=== PATIENT | female | born 1960 | race Caucasian/White ===

== ENCOUNTER → 2020-10-19 | Day surgery (SDC) | payer OTHER ==
[~2020-10-19] MED LIST: DUPIXENT P300 MG/2 M SC; OMEPRAZOLE40 MG PO; ZESTRIL5 MG PO
[2020-10-19 10:55] LABS: HCT 35.9 % (37.0-47.0); HGB 12.6 g/dl (12.5-16.0); MCH 34.4 pg (25.0-31.0); MCHC 35.1 g/dL (32.0-36.0); MCV 98.1 fL (78.0-100.0); MPV 9.5 fL (6.0-9.5); RBC 3.66 M/uL (4.20-5.40); RDW 12.4 % (11.5-14.0); WBC 5.4 K/uL (4.0-10.5)
[2020-10-19 11:12] LABS: ALBUMIN 3.9 g/dL (3.4-5.0); BILIRUBIN - TOTAL 0.9 mg/dL (0.2-1.0); BUN/CREAT RATIO (CALC) 14.5 RATIO; CREATININE 0.69 mg/dL (0.51-0.95); GLOBULIN (CALCULATION) 3.1 g/dL; POTASSIUM 4.1 mmol/L (3.5-5.1)
== END | disposition home or self-care (01) ==
LOC: FAS 10:25
PROVIDERS: Surgery
DX: K21.00 Gastro-esophageal reflux disease with esophagitis, without bleeding (principal); K22.10 Ulcer of esophagus without bleeding; K29.70 Gastritis, unspecified, without bleeding; K42.9 Umbilical hernia without obstruction or gangrene; I10 Essential (primary) hypertension; Z20.822 Contact with and (suspected) exposure to COVID-19; Z79.899 Other long term (current) drug therapy; Z98.890 Other specified postprocedural states
CPT/HCPCS: 36415; 80053; J2704; J7120

== ENCOUNTER → 2021-05-09 | Day surgery (SDC) | payer OTHER ==
[~2021-05-09] VITALS: Ht 170.2 cm; Wt 65.8 kg
[~2021-05-09] MED LIST changes: +MVI PO; +ONDANSETRON ODT8 MG PO; +VICODIN 10/3251 EACH PO
[2021-05-09 09:21] LABS: HGB 12.9 g/dl (12.5-16.0); MCH 34.3 pg (25.0-31.0); MCHC 34.9 g/dL (32.0-36.0); MCV 98.4 fL (78.0-100.0); MPV 9.6 fL (6.0-9.5); RBC 3.76 M/uL (4.20-5.40); RDW 11.5 % (11.5-14.0)
[2021-05-09 10:58] LABS: ALBUMIN 3.8 g/dL (3.4-5.0); BILIRUBIN - TOTAL 0.5 mg/dL (0.2-1.0); BUN/CREAT RATIO (CALC) 20.9 RATIO; CREATININE 0.67 mg/dL (0.51-0.95); GLOBULIN (CALCULATION) 3.4 g/dL; POTASSIUM 4.5 mmol/L (3.5-5.1); TOTAL PROTEIN 7.2 g/dL (6.4-8.2)
== END | disposition home or self-care (01) ==
LOC: FAS 08:00
PROVIDERS: Surgery
DX: K43.6 Other and unspecified ventral hernia with obstruction, without gangrene (principal)
CPT/HCPCS: 36415; 80053; J1170; J2250; J2704; J3010; J7120